=== PATIENT | female | born 1985 | race Caucasian/White ===

== ENCOUNTER → 2019-01-03 | Outpatient (CLI) | payer BC ==
[~2019-01-03] MED LIST: ABAC300; AMOCLA500; CYCL10 PO; DROSPIRENONE; ESCI10 PO; ETHINYL ESTRADIOL; HYDCOR2.5C PR; IBUP800 PO; Norco 5-325 Ta1 EACH PO; OXYACE5T PO; PIOG15; Verotin-Gr Cap1 EACH
[2019-01-03 14:45] LABS: Alanine Aminotransfer (ALT/SGP 29 U/L (12-78); Alk Phos 86 U/L (50-136); Anion Gap 6 mmol/L (6-16); Aspartate Aminotrans (AST/SGOT 11 U/L (12-37); Bilirubin, Total 0.5 mg/dL (0.1-1.0); Blood Urea Nitrogen 12 mg/dL (8-24); Bun/Creatinine Ratio 19.8 (12.0-20.0); CO2, Blood 25 mmol/L (21-32); Calcium, Blood 9.2 mg/dL (8.5-10.1); Chloride, Blood 110 mmol/L (98-108); Creatinine, Blood 0.61 mg/dL (0.40-1.00); Globulin, Blood 3.9 g/dL (2.2-4.0); Glomerular Filtration Rate >60 (60-); Glucose, Blood 96 mg/dL (70-99); Potassium, Blood 4.2 mmol/L (3.5-5.5); Sodium, Blood 141 mmol/L (136-145); Total Protein, Blood 7.9 g/dL (6.4-8.2)
== END ==
LOC: LAB 13:59 → LAB SHORT 13:59
PROVIDERS: Physician Assistant
DX: R00.2 Palpitations (principal); R73.9 Hyperglycemia, unspecified
CPT/HCPCS: 80053; 83036; 84443

== ENCOUNTER → 2019-05-03 | Outpatient (CLI) | payer BC ==
[~2019-05-03] MED LIST changes: -ESCI10 PO; +ESCI20 PO; +ESZO2 PO; +HYDR1TAB94 PO; +ONDA4ODT MM; +TOPI25 PO
[2019-05-04 10:28] LABS: Candida species (DNA Probe) Positive (NEGATIVE); G. vaginalis (DNA Probe) Negative (NEGATIVE); T. vaginalis (DNA Probe) Negative (NEGATIVE)
== END | disposition home or self-care (01) ==
LOC: LAB 13:22 → LAB SHORT 13:22
PROVIDERS: Obstetrics & Gynecology
DX: N76.0 Acute vaginitis (principal)
CPT/HCPCS: 87480; 87510; 87660

== ENCOUNTER 2019-05-25 18:57 | Observation (INO) | payer BC ==
[~2019-05-25] VITALS: Ht 167.6 cm; Wt 163.4 kg
[~2019-05-25 18:57] MED LIST changes: -ESCI20 PO; -ESZO2 PO; -HYDR1TAB94 PO; -ONDA4ODT MM; -TOPI25 PO
[2019-05-25 19:50] LABS: BASOPHILS ABSOLUTE AUTO 0.05 K/mm3 (0.00-0.23); BASOPHILS PERCENT AUTO 1 % (0-2); EOSINOPHILS ABSOLUTE AUTO 0.21 K/mm3 (0.00-0.68); EOSINOPHILS PERCENT AUTO 2 % (0-6); Hematocrit 46.3 % (33.0-51.0); Hemoglobin 14.5 g/dL (11.5-16.0); IMMATURE GRAN ABSOLUTE AUTO 0.02 K/mm3 (0.00-0.10); IMMATURE GRAN PERCENT AUTO 0 % (0-1); LYMPHOCYTES ABSOLUTE AUTO 3.06 K/mm3 (0.84-5.20); LYMPHOCYTES PERCENT AUTO 31 % (21-46); MONOCYTES ABSOLUTE AUTO 0.48 K/mm3 (0.16-1.47); MONOCYTES PERCENT AUTO 5 % (4-13); Mean Corpuscular HGB 27.6 pg (26.0-34.0); Mean Corpuscular HGB Conc 31.3 g/dL (31.5-36.5); Mean Corpuscular Volume 88 fL (80-100); Mean Platelet Volume 10.4 fL (9.1-12.4); NEUTROPHILS ABSOLUTE AUTO 5.98 K/mm3 (1.96-9.15); NEUTROPHILS PERCENT AUTO 61 % (41-73); Platelet Count 304 K/mm3 (150-400); RDW Coefficient Variation 12.3 % (11.7-14.2); RDW Standard Deviation 39.5 fL (35.1-46.3); Red Blood Cell Count 5.25 M/mm3 (3.80-5.20)
[2019-05-25 20:16] LABS: Alanine Aminotransfer (ALT/SGP 27 U/L (12-78); Albumin, Blood 3.9 g/dL (3.4-5.0); Albumin/Globulin Ratio 1.1 (0.8-1.8); Alk Phos 78 U/L (50-136); Anion Gap 6 mmol/L (6-16); Aspartate Aminotrans (AST/SGOT 10 U/L (12-37); Bilirubin, Total 0.3 mg/dL (0.1-1.0); Blood Urea Nitrogen 12 mg/dL (8-24); Bun/Creatinine Ratio 18.9 (12.0-20.0); CO2, Blood 26 mmol/L (21-32); Chloride, Blood 108 mmol/L (98-108); Creatinine, Blood 0.64 mg/dL (0.40-1.00); Globulin, Blood 3.7 g/dL (2.2-4.0); Glomerular Filtration Rate >60 (60-); Glucose, Blood 92 mg/dL (70-99); Potassium, Blood 3.6 mmol/L (3.5-5.5); Sodium, Blood 140 mmol/L (136-145); Total Protein, Blood 7.6 g/dL (6.4-8.2)
[2019-05-25] MEDS ORDERED: ESCI20 PO (20:53)
[2019-05-25] MEDS ORDERED: TOPI25 PO (20:53)
[2019-05-25] MEDS ORDERED: ESZO2 PO (20:53)
[2019-05-25 21:09] LABS: Source, Urine Clean Catch
[2019-05-25 21:12] LABS: Bilirubin, Urine Neg (Neg); Blood, Urine 1+ (Neg); Glucose Qualitative, Urine Neg (Neg); Ketones, Urine Neg (Neg); Leukocyte Esterase, Urine 1+ (Neg); Nitrite, Urine Neg (Neg); Protein, Urine 1+ (Neg); Urobilinogen, Urine NORM (Normal)
[2019-05-25 21:21] LABS: Appearance, Urine Hazy (Clear); Color, Urine Yellow (P-Yellow)
[2019-05-25 21:23] LABS: Red Blood Cells, Urine 0-2 /hpf (0-2)
[2019-05-25 21:24] LABS: Bacteria Many /hpf; Squamous Epithelial Cells Mod /hpf (Few); Yeast/Fungi Urine Few /hpf
--- NOTE | 2019-05-25 21:50 | NUR ---
RECEIVED HAND OFF FROM ER NURSE USING SBAR. TRANSPORTED TO ROOM 208 VIA STRETCHER. TRANSFERED SELF TO BED WITH STANDBY ASSIST. TOLERATED WELL. AAO X3, NAPIER, FOLLOWS ALL COMMANDS. ORIENTED TO ROOM, CALL SYSTEM, AND POC, VOICES UNDERSTANDING. EDUCATED ON WHAT TO EXPECT WITH POSSIBLE LAB JESSIKA TO BE DONE TOMORROW, NPO STATUS PAST MIDNIGHT, AND PAIN MANAGEMENT GOALS, VOICES UNDERSTANDING. PROVIDED WITH CLEAR LIQUID SNACK. DENIES PAIN, DISCOMFORT, OR FURTHER NEEDS AT THIS TIME. SAFETY MEASURES IN PLACE. ADMISSION ASSESSMENT IN PROGRESS. WILL CONTINUE TO MONITOR.
--- NOTE | 2019-05-26 07:58 | NUR ---
SHIFT SUMMARY LYING IN SEMI FOWLERS WITH EYES OPEN, TOLERATED PAIN MEDS WELL. STILL NPO FOR POSSIBLE SURGERY TODAY. DENIES FURTHER NEEDS AT THIS TIME. SAFETY MEASURES IN PLACE. HAND OFF GIVEN TO COURT [place] USING SBAR.
--- NOTE | 2019-05-26 08:12 | NUR ---
DENIES ANY PAIN AT THIS TIME, REPORTS GETTING ADQUATE PAIN CONTROL WITH IV DILAUDID, DR. BAXTER IN TO SEE PT THIS AM, PLAN FOR SURGERY TODAY, DENIES ANY NAUSEA OR ANY DISCOMFORT AT THIS TIME, CONT. TO MONITOR FOR ANY CHANGES, MEDICATE FOR PAIN PRN.
--- NOTE | 2019-05-26 09:52 | NUR ---
PT ABD HAD SOME HEALING SORES WHICH SHE STATES DR. BAXTER HAS ALREADY SEEN.
--- NOTE | 2019-05-26 14:20 | NUR ---
POST OP ARRIVED FROM PACU VIA GURNEY, DROWSY BUT AWAKENS EASILY, DENIES ANY PAIN AT THIS TIME, LAP INCISIONS C/D/I, SIPS OF WATER & ICE CHIPS GIVEN, AT BEDSIDE, CONT. TO MONITOR FOR ANY CHANGES.
--- NOTE | 2019-05-26 17:09 | NUR ---
REPORT RECIEVED FROM COURT [place]. ASSUMED PT CARE AT ABOUT 1600
--- NOTE | 2019-05-26 17:10 | NUR ---
SUMMARY: PT IS POD0 LAP JESSIKA. VSS, A/O. PT DOING WELL SINCE RECIEVING REPORT. DENIES NAUSEA, REPORTS SOME GAS PAIN. GAS-X GIVEN AND MOBILITY ENCOURAGED. PT ABLE TO WALK IN HALLWAY AND UP TO VOID. TOLERATING CLEAR LIQ DIET. NO ACUTE CONCERNS AT THIS TIME. WILL CTM AND REPORT TO VELIA YNU.
--- NOTE | 2019-05-27 06:38 | NUR ---
SHIFT SUMMARY LYING IN LOW FOWLERS WITH EYES CLOSED. LAP SITES X4 COVERED BY CRISTOBAL AND ARNAV ARE C/D/I. AMBULATING IN HALLWAY, STATES THAT SHE HAD NOT PASSED GAS YET, BUT IS FEELING THINGS MOVING IN HER LOWER ABD. MEDICATED FOR PAIN X2 THIS SHIFT. DENIES FURTHER NEEDS AT THIS TIME. SAFETY MEASURES IN PLACE. WILL GIVE HAND OFF TO CONCOMING SHIFT USING SBAR.
--- NOTE | 2019-05-27 07:25 | NUR ---
DR BAXTER BY TO SEE PT OK TO DISCHARGE HOME PT STATED SHE JUST PASSED GAS PAIN 11/07 STATED HER IS POSS ASLEEP ASKED WHEN SHE WILL BE DISCHARGED STATED SHE SHE CAN GO AT ANY TIME
[2019-05-27] MEDS ORDERED: ONDA4ODT MM (08:04)
[2019-05-27] MEDS ORDERED: HYDR1TAB94 PO (08:05)
--- NOTE | 2019-05-27 08:45 | NUR ---
earlier pt stated she had blurry double vision to her right eye stated it was painful after surgery and could not see out of it due to blurriness pt does not have any other symptoms no facial droop or weakness to the r side no h/a pt using eye drops dr simon in or notified or staff to have hin come and see pt again per pt req
--- NOTE | 2019-05-27 09:36 | NUR ---
dr simon by to see pt re r eye rec her to see opth outpt and if she has any s/s res stroke to come to the er
--- NOTE | 2019-05-27 10:38 | NUR ---
discharge instructions reviewed with pt verbalized rx given no acute changes wc escort to car
== END 2019-05-27 10:40 | disposition home or self-care (01) ==
LOC: ER 18:57 → SURS 18:58 → ER 20:44 → SURS 20:44
PROVIDERS: Emergency Medicine; Surgery; ADMIT Surgery
PROC: 0FT44ZZ Resection of Gallbladder, Percutaneous Endoscopic Approach (ICD-10-PCS; principal; 2019-05-26 10:30)
PROC: BF13YZZ Fluoroscopy of Gallbladder and Bile Ducts using Other Contrast (ICD-10-PCS; principal; 2019-05-26 10:30)
DX: K80.12 Calculus of gallbladder with acute and chronic cholecystitis without obstruction (principal); E66.01 Morbid (severe) obesity due to excess calories; Z68.43 Body mass index [BMI] 50.0-59.9, adult; Z87.891 Personal history of nicotine dependence
CPT/HCPCS: 36415; 74300; 80053; 81001; 81025; 83690; 85025; 87086; 88304; 96361; 96366; 96372; 96374; 96375; 96376; 99285-25; A9270-GY; C1729; G0378; J1100; J1170; J1650; J1885; J2060; J2250; J2405; J2543; J2704; J3010; J7030; J7120

== ENCOUNTER → 2020-10-18 | Outpatient (CLI) | payer BC ==
[~2020-10-18] MED LIST changes: +ESCI20 PO; +ESZO2 PO; +HYDR1TAB94 PO; +ONDA4ODT MM; +TOPI25 PO
== END ==
LOC: LAB 08:15 → LAB SHORT 08:15
DX: L08.0 Pyoderma (principal)
CPT/HCPCS: 87070; 87077; 87186; 87205

== ENCOUNTER → 2023-08-08 | Outpatient (CLI) | payer BC | LOC: LAB SHORT 17:16 → LAB 17:16 | DX: H92.02 Otalgia, left ear (principal) | CPT/HCPCS: 87070; 87077; 87186; 87205 ==

== ENCOUNTER → 2024-05-18 | Outpatient (CLI) | payer BC ==
[2024-05-18 16:15] LABS: Bacterial Vaginosis PCR Negative (NEGATIVE); Candida Group, PCR NOT DETECTED (NOT DETECT); Candida glabrata-krusei, PCR NOT DETECTED (NOT DETECT)
[2024-05-26 16:18] LABS: HPV HIGH RISK BY TMA Not Detected; HPV SOURCE Cervical
== END | disposition home or self-care (01) ==
LOC: LAB SHORT 10:22 → LAB 10:22
PROVIDERS: Obstetrics & Gynecology
DX: Z01.419 Encounter for gynecological examination (general) (routine) without abnormal findings (principal); N76.0 Acute vaginitis
CPT/HCPCS: 87481; 87624; 87661; 87801; G0123